=== PATIENT | female | born 1985 | race Two or more races ===

== ENCOUNTER 2018-07-17 23:37 | Emergency (ER) | payer MEDICAID ==
[~2018-07-17] VITALS: Ht 157.5 cm; Wt 54.4 kg
[2018-07-17 23:37] VITALS: BP 112/74
[~2018-07-17 23:37] MED LIST: BUPROPION XL150 MG ORAL; TRAZODONE HCL50 MG ORAL
[2018-07-18 00:14] LABS: BASOPHILS % (AUTO) 0.9 % (0.0-2.0); EOSINOPHILS % (AUTO) 7.1 % (0.0-3.0); HEMATOCRIT 47.5 % (37.0-47.0); HEMOGLOBIN 16.2 G/DL (12.0-16.0); LYMPHOCYTES % (AUTO) 49.9 % (20.0-45.0); MEAN CORPUSCULAR VOLUME 90 FL (80-99); MONOCYTES % (AUTO) 4.9 % (1.0-10.0); NEUTROPHILS % (AUTO) 37.2 % (45.0-75.0); PLATELET COUNT 284 K/UL (150-450); RED BLOOD COUNT 5.28 M/UL (4.20-5.40); RED CELL DISTRIBUTION WIDTH 10.6 % (11.6-14.8); WHITE BLOOD COUNT 5.1 K/UL (4.8-10.8)
[2018-07-18 00:20] LABS: APPEARANCE,URINE CLEAR; BILIRUBIN, URINE NEGATIVE (NEGATIVE); COLOR,URINE PALE YELLOW; GLUCOSE, URINE (UA) NEGATIVE (NEGATIVE); KETONES,URINE NEGATIVE (NEGATIVE); LEUKOCYTE ESTERASE ,URINE NEGATIVE (NEGATIVE); NITRITE,URINE NEGATIVE (NEGATIVE); PH,URINE 7 (4.5-8.0); PROTEIN,URINE NEGATIVE (NEGATIVE); UROBILINOGEN,URINE NORMAL MG/DL (0.0-1.0)
[2018-07-18 00:24] LABS: ANION GAP 12 mmol/L (5-15); BLOOD UREA NITROGEN 9 mg/dL (7-18); CALCIUM 8.7 MG/DL (8.5-10.1); CARBON DIOXIDE 29 MMOL/L (21-32); CHLORIDE 107 MMOL/L (98-107); CREATININE 0.8 MG/DL (0.55-1.30); POTASSIUM 3.1 MMOL/L (3.5-5.1); SODIUM 148 MMOL/L (136-145)
[2018-07-18 00:32] LABS: ALANINE AMINOTRANSFERASE 54 U/L (12-78); ALBUMIN 4.3 G/DL (3.4-5.0); ALKALINE PHOSPHATASE 45 U/L (46-116); ASPARTATE AMINO TRANSFERASE 42 U/L (15-37); BILIRUBIN,TOTAL 0.2 MG/DL (0.2-1.0)
[2018-07-18 02:05] VITALS: BP 114/73
[2018-07-18] MEDS ORDERED: LORazepam Inj 2mg/ml 1ml IV ONE (04:15)
[2018-07-18 04:25] VITALS: BP 113/75
--- NOTE | 2018-07-18 04:33 | Emergency Room Report ---
History of Present Illness General Chief Complaint: Behavioral Complaint Source: Patient, Significant Other, EMS (Vaughn Quiñonez MD) Present Illness HPI Patient presents after drinking a lot of alcohol tying pajamas around her neck and saying that she was going to hang herself. Paramedics transported patient here. Police are placing the patient on 5150. According to her boyfriend they were working to get her in rehabilitation. She has dual diagnosis of. She started drinking this afternoon. He only saw small bottle of hard liquor. She denies taking an overdose of her medication at this time. She takes Benadryl to sleep at night and also Lexapro. They have been working with a [employer] social work associate. No fevers, headache, NVD, dysuria. No joint pain. No abdominal pain, rashes. (Vaughn Quiñonez MD) Allergies: Coded Allergies: No Known Allergies (Unverified , 07/17/18) Patient History Past Medical History: see triage record Social History: Reports: smoking, alcohol use Social History Narrative with boyfriend Last Menstrual Period: last week Now: No Reviewed Nursing Documentation: PMH: Agreed; PSxH: Agreed (Vaughn Quiñonez MD) Nursing Documentation-PMH History Of Psychiatric Problem: Yes - insomnia, depression (Vaughn Quiñonez MD) Review of Systems All Other Systems: negative except mentioned in HPI (Vaughn Quiñonez MD) Physical Exam Vital Signs Date Time Temp Pulse Resp B/P (MAP) Pulse Ox O2 Delivery O2 Flow Rate FiO2 07/17/18 23:26 97.9 105 18 115/77 99 Room Air Sp02 EP Interpretation: reviewed, normal General Appearance: well appearing, no apparent distress, GCS 15, other - alcohol on breath, slurriing words Head: normocephalic, atraumatic Eyes: bilateral eye PERRL, bilateral eye Scleral Injection ENT: moist mucus membranes Neck: supple Respiratory: lungs clear, normal breath sounds Cardiovascular #1: regular rate, rhythm Cardiovascular #2: 2+ radial (R) Gastrointestinal: normal inspection, normal bowel sounds, non tender, no mass, non-distended Musculoskeletal: back normal, normal range of motion Neurologic: alert, oriented x3, other - ataxic Psychiatric: anxious - somewhat manipulative Suicide Risk Assessment: Suicidal Ideation: Yes Had intent to initiate attempt: Yes Pt's plan for suicide attempt: Yes Has means to complete attempt: Yes Skin: normal inspection, warm/dry, other - plethoric (Vaughn Quiñonez MD) Medical Decision Making Diagnostic Impression: Primary Impression: Alcohol intoxication Qualified Codes: F10.929 - Alcohol use, unspecified with intoxication, unspecified Additional Impression: Depression ER Course Patient presents post alcohol ingestion and suicidal ideation and gesture. DDX : alcohol intoxication, exacerbation of dual diagnosis, impulsive behavior, suicide gesture, electrolyte abnormality. Evaluation with EKG, labs. Treatment with IV hydration and cardiac observation. EKG no injury. Labs with BAL 333. Potassium slightly low. Patient was slightly escalated. Discussed medicating her at this time and anticipated plan. Patient needs repeat blood alcohol before she will be able placed or re-evaluated by psychiatrist. After medication, patient calm and sleeping. Signed out to Dr. Cormier. Laboratory Tests Test 07/17/18 23:56 White Blood Count 5.1 K/UL (4.8-10.8) Red Blood Count 5.28 M/UL (4.20-5.40) Hemoglobin 16.2 G/DL (12.0-16.0) H Hematocrit 47.5 % (37.0-47.0) H Mean Corpuscular Volume 90 FL (80-99) Mean Corpuscular Hemoglobin 30.7 PG (27.0-31.0) Mean Corpuscular Hemoglobin Concent 34.2 G/DL (32.0-36.0) Red Cell Distribution Width 10.6 % (11.6-14.8) L Platelet Count 284 K/UL (150-450) Mean Platelet Volume 6.3 FL (6.5-10.1) L Neutrophils (%) (Auto) 37.2 % (45.0-75.0) L Lymphocytes (%) (Auto) 49.9 % (20.0-45.0) H Monocytes (%) (Auto) 4.9 % (1.0-10.0) Eosinophils (%) (Auto) 7.1 % (0.0-3.0) H Basophils (%) (Auto) 0.9 % (0.0-2.0) Urine Color Pale yellow Urine Appearance Clear Urine pH 7 (4.5-8.0) Urine Specific [place] 1.010 (1.005-1.035) Urine Protein Negative (NEGATIVE) Urine Glucose (UA) Negative (NEGATIVE) Urine Ketones Negative (NEGATIVE) Urine Blood Negative (NEGATIVE) Urine Nitrite Negative (NEGATIVE) Urine Bilirubin Negative (NEGATIVE) Urine Urobilinogen Normal MG/DL (0.0-1.0) Urine Leukocyte Esterase Negative (NEGATIVE) Urine HCG, Qualitative Negative (NEGATIVE) Sodium Level 148 MMOL/L (136-145) H Potassium Level 3.1 MMOL/L (3.5-5.1) L Chloride Level 107 MMOL/L (98-107) Carbon Dioxide Level 29 MMOL/L (21-32) Anion Gap 12 mmol/L (5-15) Blood Urea Nitrogen 9 mg/dL (7-18) Creatinine 0.8 MG/DL (0.55-1.30) Estimate Glomerular Filtration Rate > 60 mL/min (>60) Glucose Level 90 MG/DL (74-106) Calcium Level 8.7 MG/DL (8.5-10.1) Total Bilirubin 0.2 MG/DL (0.2-1.0) Aspartate Amino Transferase (AST) 42 U/L (15-37) H Alanine Aminotransferase (ALT) 54 U/L (12-78) Alkaline Phosphatase 45 U/L (46-116) L Total Protein 8.5 G/DL (6.4-8.2) H Albumin 4.3 G/DL (3.4-5.0) Globulin 4.2 g/dL Albumin/Globulin Ratio 1.0 (1.0-2.7) Salicylates Level 1.7 ug/mL (2.8-20) L Urine Opiates Screen Negative (NEGATIVE) Acetaminophen Level < 2 MCG/ML (10-30) L Urine Barbiturates Screen Negative (NEGATIVE) Phencyclidine (PCP) Screen Negative (NEGATIVE) Urine Amphetamines Screen Negative (NEGATIVE) Urine Benzodiazepines Screen Negative (NEGATIVE) Urine Cocaine Screen Negative (NEGATIVE) Urine Marijuana (THC) Screen Negative (NEGATIVE) Serum Alcohol 333 mg/dL (Vaughn Quiñonez MD) ER Course This patient had presented with alcohol intoxication and is on a [address] [place] [employer]. I reassessed this patient when she was clinically sober. She states she has not recall any suicidal ideation. She states she does have alcoholism and is planning on undergoing outpatient rehabilitation at [facility]. She also is seen at [facility]. She denies any suicidal or homicidal ideation. She states that her boyfriend is very controlling and calls the police on her when he gets mad at her. She does not feel that she is a danger to herself or others. She does plan to follow closely at [facility] and [facility]. She was seen by Dr. Ravi, psychiatry. Dr. Ravi did remove the [address] Ravi also requested prescriptions for lexapro , Thiamine, folate and valium for withdrawl symptoms. The patient indicated desire to stop drinking alcohol. This patient contracts for safety at this time. She was instructed to follow-up closely with her mental health provider and as planned with [facility] rehabilitation. Laboratory Tests Test 07/17/18 23:56 07/18/18 07:18 White Blood Count 5.1 K/UL (4.8-10.8) Red Blood Count 5.28 M/UL (4.20-5.40) Hemoglobin 16.2 G/DL (12.0-16.0) H Hematocrit 47.5 % (37.0-47.0) H Mean Corpuscular Volume 90 FL (80-99) Mean Corpuscular Hemoglobin 30.7 PG (27.0-31.0) Mean Corpuscular Hemoglobin Concent 34.2 G/DL (32.0-36.0) Red Cell Distribution Width 10.6 % (11.6-14.8) L Platelet Count 284 K/UL (150-450) Mean Platelet Volume 6.3 FL (6.5-10.1) L Neutrophils (%) (Auto) 37.2 % (45.0-75.0) L Lymphocytes (%) (Auto) 49.9 % (20.0-45.0) H Monocytes (%) (Auto) 4.9 % (1.0-10.0) Eosinophils (%) (Auto) 7.1 % (0.0-3.0) H Basophils (%) (Auto) 0.9 % (0.0-2.0) Urine Color Pale yellow Urine Appearance Clear Urine pH 7 (4.5-8.0) Urine Specific [place] 1.010 (1.005-1.035) Urine Protein Negative (NEGATIVE) Urine Glucose (UA) Negative (NEGATIVE) Urine Ketones Negative (NEGATIVE) Urine Blood Negative (NEGATIVE) Urine Nitrite Negative (NEGATIVE) Urine Bilirubin Negative (NEGATIVE) Urine Urobilinogen Normal MG/DL (0.0-1.0) Urine Leukocyte Esterase Negative (NEGATIVE) Urine HCG, Qualitative Negative (NEGATIVE) Sodium Level 148 MMOL/L (136-145) H Potassium Level 3.1 MMOL/L (3.5-5.1) L Chloride Level 107 MMOL/L (98-107) Carbon Dioxide Level 29 MMOL/L (21-32) Anion Gap 12 mmol/L (5-15) Blood Urea Nitrogen 9 mg/dL (7-18) Creatinine 0.8 MG/DL (0.55-1.30) Estimate Glomerular Filtration Rate > 60 mL/min (>60) Glucose Level 90 MG/DL (74-106) Calcium Level 8.7 MG/DL (8.5-10.1) Total Bilirubin 0.2 MG/DL (0.2-1.0) Aspartate Amino Transferase (AST) 42 U/L (15-37) H Alanine Aminotransferase (ALT) 54 U/L (12-78) Alkaline Phosphatase 45 U/L (46-116) L Total Protein 8.5 G/DL (6.4-8.2) H Albumin 4.3 G/DL (3.4-5.0) Globulin 4.2 g/dL Albumin/Globulin Ratio 1.0 (1.0-2.7) Salicylates Level 1.7 ug/mL (2.8-20) L Urine Opiates Screen Negative (NEGATIVE) Acetaminophen Level < 2 MCG/ML (10-30) L Urine Barbiturates Screen Negative (NEGATIVE) Phencyclidine (PCP) Screen Negative (NEGATIVE) Urine Amphetamines Screen Negative (NEGATIVE) Urine Benzodiazepines Screen Negative (NEGATIVE) Urine Cocaine Screen Negative (NEGATIVE) Urine Marijuana (THC) Screen Negative (NEGATIVE) Serum Alcohol 333 mg/dL 129 mg/dL (Colianno,Amy M. DO) EKG Diagnostic Results Rate: normal Rhythm: NSR ST Segments: no acute changes (Vaughn Quiñonez MD) Rhythm Strip Diag. Results EP Interpretation: yes Rhythm: NSR, no PVC's, no ectopy (Vaughn Quiñonez MD) Last Vital Signs Date Time Temp Pulse Resp B/P (MAP) Pulse Ox O2 Delivery O2 Flow Rate FiO2 07/18/18 07:20 72 18 Room Air 07/18/18 06:40 98.1 115/72 99 Status: improved (Vaughn Quiñonez MD) Status: improved (Amy Freire RikMalia MONTANEZ) Disposition: HOME, SELF-CARE Condition: Improved Scripts Diazepam* (VALIUM*) 5 Mg Tablet 5 MG ORAL TID PRN for alcohol withrawl symptoms, #5 TAB 0 Refills Prov: Amy FreireMalia MONTANEZ 07/18/18 Folic Acid* (FOLIC ACID*) 1 Mg Tablet 1 MG ORAL DAILY, #10 TAB Prov: LaureAmy walterMalia MONTANEZ 07/18/18 Thiamine Hcl* (VITAMIN B-1*) 100 Mg Tablet 100 MG ORAL DAILY, #30 TAB 0 Refills Prov: MihaijairoAmy walterMalia 07/18/18 Escitalopram Oxalate* (LEXAPRO*) 10 Mg Tablet 10 MG ORAL DAILY, #30 TAB Prov: MihaijairoAmy walterMalia MONTANEZ 07/18/18 Referrals: [facility]ERR[facility] (PCP) Vaughn Quiñonez MD Jul 18, 2018 04:33 Amy Freire DO Jul 18, 2018 11:51
[2018-07-18 06:40] VITALS: BP 115/72
[2018-07-18 09:00] VITALS: BP 91/54
[2018-07-18] MEDS ORDERED: LEXAPRO10 MG ORAL (11:54)
[2018-07-18] MEDS ORDERED: VALIUM5 MG ORAL (11:54)
[2018-07-18] MEDS ORDERED: VITAMIN B-1100 MG ORAL (11:54)
[2018-07-18] MEDS ORDERED: FOLIC ACID1 MG ORAL (11:54)
[2018-07-18 12:20] VITALS: BP 111/74
[2018-07-18 12:21] VITALS: BP 111/74
--- NOTE | 2018-07-18 14:14 | Cardiology Report ---
APPROVED REPORT EKG Measurement Heart [id number] Normal sinus rhythm Possible Left atrial enlargement Nonspecific T wave abnormality Prolonged QT Abnormal ECG
--- NOTE | 2018-07-20 22:45 | Consultation ---
DATE OF CONSULTATION: 07/18/2018 CONSULTING PHYSICIAN: Marce Ravi M.D. HISTORY OF PRESENT ILLNESS: The patient is a 33-year-old with a history of severe alcohol dependence who was admitted to the hospital after she got into an argument with her boyfriend when she was intoxicated. The patient, according to the boyfriend wrapped her blanket around her neck and stated to the boyfriend that she wants to kill herself. The boyfriend called 911. She was brought into the hospital. During the evaluation, the patient was calm, cooperative, and reasonable. She was motivated to stop drinking. Her father was coming from [place] to arrange for the patient to go to the rehabilitation unit. PAST PSYCHIATRIC HISTORY: Depression and anxiety. The patient is currently taking Wellbutrin. She does not have a psychiatrist that she sees on a regular basis. MENTAL STATUS EXAMINATION: The patient is alert and oriented to time, self, place, situation, and date. Mood is neutral. Affect is full range. Congruent with mood. Thought process is linear and goal oriented. Thought content, no suicidal or homicidal ideation. Cognition is intact. Insight and judgment are fair. ASSESSMENT: [place] I Alcohol dependence. Major depressive disorder. [place] II Deferred. [place] III As above. [place] IV Low. [place] V 50. PLAN: 1. The patient will be discharged as she is not an imminent danger to self or others. She does not meet criteria psychiatric inpatient level of care. 2. The patient will be discharged home and the plan will be for her to attend substance abuse program. The patient was advised not to take Wellbutrin with alcohol. Marce Ravi M.D. DR: MARISSA JOB#: [id number] CC:
== END 2018-07-18 12:23 | disposition home or self-care (01) ==
LOC: EDBD 23:37 → EMR 23:47
DX: F10.129 Alcohol abuse with intoxication, unspecified (principal); F32.9 Major depressive disorder, single episode, unspecified; R45.851 Suicidal ideations
CPT/HCPCS: 36415; 80053; 80307; 80329; 81003; 81025; 85025; 93005; 96374; 99284